=== PATIENT | male | born 1940 | race Caucasian/White ===

== ENCOUNTER → 2019-06-07 | Outpatient (CLI) | payer MEDICARE ==
--- NOTE | 2019-06-07 17:53 | REP ---
LEFT LOWER EXTREMITY DUPLEX DOPPLER VENOUS ULTRASOUND: Real-time compression and duplex Doppler interrogation of the left lower extremity deep venous system is performed. Left common femoral, superficial femoral and popliteal veins are fully compressible with transducer pressure and demonstrate normal spontaneous and phasic flow without evidence of deep venous thrombosis. Incidental note is made of an oval hyperechoic area in the musculature of the left thigh proximally likely representing a lipoma, measuring 4.5 x 1.9 x 2.1 cm. IMPRESSION: No DVT left lower extremity. 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 Electronically Signed by Julio Bonilla MD 06/08/2019 10:28 A
== END ==
LOC: M RAD 15:36
PROVIDERS: ATTEND Family Medicine
DX: R22.42 Localized swelling, mass and lump, left lower limb (principal)

== ENCOUNTER → 2020-01-01 | Outpatient (CLI) | payer MEDICARE ==
[2020-01-01 13:02] LABS: BASO % 0.5 % (0.0-1.0); EOS # 0.1 10^3/uL (0.0-0.5); EOS % 2.1 % (0.0-3.0); HEMATOCRIT 43.7 % (42.0-52.0); HEMOGLOBIN 14.3 g/dl (13.5-17.5); LYMPH # 0.9 10^3/uL (1.5-5.0); LYMPH % 15.7 % (24.0-44.0); MEAN CORPUSCULAR HGB CONC 32.7 g/dl (32.0-36.5); MEAN CORPUSCULAR VOLUME 91.8 fl (80.0-96.0); MONO # 0.5 10^3/uL (0.0-0.8); MONO % 8.2 % (0.0-5.0); NEUTROPHILS # 4.2 10^3/uL (1.5-8.5); NEUTROPHILS % 73.3 % (36.0-66.0); PLATELET COUNT, AUTOMATED 144 10^3/uL (150-450); RED BLOOD COUNT 4.76 10^6/uL (4.30-6.10); WHITE BLOOD COUNT 5.7 10^3/uL (4.0-10.0)
[2020-01-01 13:20] LABS: CALCIUM LEVEL 8.2 MG/DL (8.8-10.2); CREATININE FOR GFR 1.33 MG/DL (0.70-1.30); GLOMERULAR FILTRATION RATE 55.5 (>42); POTASSIUM SERUM 4.7 MEQ/L (3.5-5.1)
== END ==
LOC: M LAB 12:17
PROVIDERS: ATTEND Internal Medicine Cardiovascular Disease
DX: R94.39 Abnormal result of other cardiovascular function study (principal)

== ENCOUNTER → 2020-07-03 | Outpatient (CLI) | payer MEDICARE ==
[~2020-07-03] MED LIST: AMLO1TAB24; ASPI-161 PO; ATOR1TAB21; LOSA50TA88; METO50TA7
== END ==
LOC: M LABSMTC 13:51
PROVIDERS: ATTEND Anesthesiology
DX: Z01.818 Encounter for other preprocedural examination (principal); Z20.822 Contact with and (suspected) exposure to COVID-19

== ENCOUNTER 2020-07-06 09:41 | Day surgery (SDC) | payer MEDICARE ==
[~2020-07-06] VITALS: Ht 177.8 cm; Wt 104.5 kg
[~2020-07-06 09:41] MED LIST changes: +LIDOCAINE 2% 100MG/5ML SDV (FOR ANES.) As Ordered ONE; +NS 1,000 ML IV ONE; +propofoL 200 MG/20 ML VIAL As Ordered ONE
--- NOTE | 2020-07-06 10:57 | ROOR ---
Patient Name: Bao Morrow Procedure Date: 07/06/2020 10:36 AM Date of : 1940 Age: 79 Room: [facility] Gender: Male Note Status: Finalized Procedure: Colonoscopy Indications: Screening for colorectal malignant neoplasm Providers: Kalyan Perkins Jr, MD Referring MD: Nabeel Fields MD Requesting Provider: Medicines: Propofol per Anesthesia Complications: No immediate complications. Procedure: Pre-Anesthesia Assessment: - Prior to the procedure, a History and Physical was performed, and patient medications and allergies were reviewed. The patient is competent. The risks and benefits of the procedure and the sedation options and risks were discussed with the patient. All questions were answered and informed consent was obtained. Patient identification and proposed procedure were verified by the physician and the nurse in the pre-procedure area and in the procedure room. Mental Status Examination: alert and oriented. Airway Examination: normal oropharyngeal airway and neck mobility. Respiratory Examination: clear to auscultation. CV Examination: normal. ASA Grade Assessment: III - A patient with severe systemic disease. After reviewing the risks and benefits, the patient was deemed in satisfactory condition to undergo the procedure. The anesthesia plan was to use moderate sedation / analgesia (conscious sedation). Immediately prior to administration of medications, the patient was re-assessed for adequacy to receive sedatives. The heart rate, respiratory rate, oxygen saturations, blood pressure, adequacy of pulmonary ventilation, and response to care were monitored throughout the procedure. The physical status of the patient was re-assessed after the procedure. The Colonoscope was introduced through the anus and advanced to the cecum, identified by appendiceal orifice and ileocecal valve. The colonoscopy was performed without difficulty. The patient tolerated the procedure well. The quality of the bowel preparation was adequate. Findings: The rectum, recto-sigmoid colon, descending colon, transverse colon, cecum, appendiceal orifice and ileocecal valve appeared normal. A small polyp was found in the ascending colon. The polyp was semi-sessile. The polyp was removed with a cold snare. Resection was complete, but the polyp tissue was not retrieved. Many small and large-mouthed diverticula were found in the sigmoid colon. Impression: - The rectum, recto-sigmoid colon, descending colon, transverse colon, cecum, appendiceal orifice and ileocecal valve are normal. - One small polyp in the ascending colon, removed with a cold snare. Complete resection. Polyp tissue not retrieved. - Diverticulosis in the sigmoid colon. Recommendation: - Discharge patient to home (ambulatory). - Repeat colonoscopy in 5 years for surveillance. Procedure Code(s): --- Professional --- 43074, Colonoscopy, flexible; with removal of tumor(s), polyp(s), or other lesion(s) by snare technique Diagnosis Code(s): --- Professional --- Z12.11, Encounter for screening for malignant neoplasm of colon K63.5, Polyp of colon K57.30, Diverticulosis of large intestine without perforation or abscess without bleeding CPT copyright 2019 [employer]. All rights reserved. The codes documented in this report are preliminary and upon out patient therapist review may be revised to meet current compliance requirements. Kalyan Perkins MD Kalyan Perkins Jr, MD 07/06/2020 10:57:32 AM Electronically signed by Kalyan Perkins Jr, MD Number of Addenda: 0 Note Initiated On: 07/06/2020 10:36 AM Estimated Blood Loss: Estimated blood loss: none.
[2020-07-06 11:25] VITALS: BP 162/78
== END 2020-07-06 11:34 | disposition home or self-care (01) ==
LOC: M OPP 09:41
PROVIDERS: ATTEND Surgery
DX: Z12.11 Encounter for screening for malignant neoplasm of colon (principal); K57.30 Diverticulosis of large intestine without perforation or abscess without bleeding; I25.10 Atherosclerotic heart disease of native coronary artery without angina pectoris; I10 Essential (primary) hypertension; E78.5 Hyperlipidemia, unspecified; Z95.5 Presence of coronary angioplasty implant and graft; Z87.891 Personal history of nicotine dependence; Z79.82 Long term (current) use of aspirin; Z79.899 Other long term (current) drug therapy

== ENCOUNTER → 2022-05-14 | Outpatient (REF) | payer MEDICARE ==
[~2022-05-14] MED LIST changes: -LIDOCAINE 2% 100MG/5ML SDV (FOR ANES.) As Ordered ONE; +LOSA50TA28; -LOSA50TA88; -NS 1,000 ML IV ONE; -propofoL 200 MG/20 ML VIAL As Ordered ONE
[2022-05-14 19:11] LABS: TOTAL PROTEIN,RANDOM URINE 34.4 MG/DL (0.0-14.0)
[2022-05-14 19:13] LABS: AMORPHOUS SEDIMENT SMALL (NEGATIVE); BACTERIA, URINE AUTO 1+ (NEGATIVE); GRANULAR CAST, URINE AUTO 6 /LPF; MUCUS, URINE SMALL (NEGATIVE); RBC, URINE AUTO 3 /HPF (0-3); SQUAMOUS EPITHELIAL CELL UR AU 0 /HPF (0-6); WBC, URINE AUTO 1 /HPF (0-3)
[2022-05-14 19:17] LABS: CREATININE,RANDOM URINE 195.4 MG/DL
== END ==
LOC: M LAB REF 16:47
PROVIDERS: ATTEND Internal Medicine Nephrology
DX: N18.31 Chronic kidney disease, stage 3a (principal); R80.9 Proteinuria, unspecified

== ENCOUNTER → 2022-05-31 | Outpatient (CLI) | payer MEDICARE | LOC: M RAD 13:12 | PROVIDERS: ATTEND Internal Medicine Nephrology | DX: N18.31 Chronic kidney disease, stage 3a (principal); N39.43 Post-void dribbling ==

== ENCOUNTER → 2022-11-20 | Outpatient (REF) | payer MEDICARE | LOC: M LAB REF 12:39 | PROVIDERS: ATTEND Family Medicine | DX: I21.19 ST elevation (STEMI) myocardial infarction involving other coronary artery of inferior wall (principal) ==

== ENCOUNTER → 2024-02-18 | Outpatient (REF) | payer MEDICARE ==
[~2024-02-18] MED LIST changes: -ASPI-161 PO; +ASPI-615 PO
[2024-02-18 18:37] LABS: TOTAL PROTEIN,RANDOM URINE 28.4 MG/DL (0.0-14.0)
[2024-02-18 18:42] LABS: CREATININE,RANDOM URINE 107.1 MG/DL
== END ==
LOC: M LAB REF 17:08
PROVIDERS: ATTEND Internal Medicine Nephrology
DX: R80.9 Proteinuria, unspecified (principal)

== ENCOUNTER → 2024-03-23 | Outpatient (REF) | payer MEDICARE | LOC: M SMT 12:53 | PROVIDERS: ATTEND Urology | DX: C61 Malignant neoplasm of prostate (principal); R97.20 Elevated prostate specific antigen [PSA]; Z79.01 Long term (current) use of anticoagulants; Z79.82 Long term (current) use of aspirin; Z79.899 Other long term (current) drug therapy ==

== ENCOUNTER → 2024-07-01 | Outpatient (CLI) | payer MEDICARE ==
[~2024-07-01] MED LIST changes: +ASPI81CH33 PO; +ATOR40TA75 PO; +ELIQ2.5T PO; +HYDR12.55 PO; +LOSA50TA28 PO; +METO1TAB7 PO; +NITR0.4S14 SL
== END ==
LOC: M ONCR 13:55
PROVIDERS: ATTEND General Practice
DX: C61 Malignant neoplasm of prostate (principal); Z92.29 Personal history of other drug therapy; Z87.891 Personal history of nicotine dependence; Z79.01 Long term (current) use of anticoagulants; Z79.82 Long term (current) use of aspirin; Z79.899 Other long term (current) drug therapy

== ENCOUNTER → 2024-12-16 | Outpatient (CLI) | payer MEDICARE | LOC: M LAB 14:04 | PROVIDERS: ATTEND Urology | DX: C61 Malignant neoplasm of prostate (principal) ==